=== PATIENT | male | born 1955 | race Caucasian/White ===

== ENCOUNTER 2020-02-08 16:50 | Emergency (ER) | payer BC, OTHER ==
[~2020-02-08] VITALS: Ht 167.6 cm; Wt 89.8 kg
--- NOTE | 2020-02-08 16:55 | NUR ---
IM SLURRING MY WORDS AND FEEL WEAK ON THE RT SIDE SINCE YESTERDAY 12 PM. PATIENT A/OX4, VERBALLY RESPONSIVE, CHAGNED INTO GOWN, ATTACHED TO THE PROMOTION MANAGER. IV LINE ESTABLISHED, BLOOD DRAWN AND SENT TO LAB.
--- NOTE | 2020-02-08 16:58 | NUR ---
DR. RM AT BEDSIDE FOR EVALUATION. PATIENT DOESN'T MEET THE CRITERIA FOR CODE STROKE. BLOOD GLUCOSE 375.
[2020-02-08 17:28] LABS: BASOPHILS # (AUTO) 0.1 /CMM (0.0-0.2); BASOPHILS % (AUTO) 0.5 % (0.0-2.0); EOSINOPHILS % (AUTO) 0.4 % (0.0-6.0); HEMATOCRIT 52 % (39-51); HEMOGLOBIN 17.9 g/dL (13.5-17.5); LYMPHOCYTES # (AUTO) 1.5 /CMM (0.8-4.8); LYMPHOCYTES % (AUTO) 14.5 % (20.0-44.0); MEAN CORPUSCULAR HGB CONC 34 g/dl (31.0-36.0); MEAN CORPUSCULAR VOLUME 91 fL (80-96); MONOCYTES # (AUTO) 0.6 /CMM (0.1-1.30); MONOCYTES % (AUTO) 5.7 % (2.0-12.0); NEUTROPHILS # (AUTO) 8.1 /CMM (1.8-8.9); NEUTROPHILS % (AUTO) 78.9 % (43.0-81.0); PLATELET COUNT (AUTO) 302 /CMM (150-450); RED BLOOD CELL COUNT(AUTO) 5.75 MIL/uL (4.5-6.0); WHITE BLOOD COUNT (AUTO) 10.3 K/uL (4.3-11.0)
[2020-02-08] MEDS ORDERED: IV NS 0.9% 1,000 ML BAG IV ONE (17:30)
[2020-02-08 17:41] LABS: CALCIUM, SERUM 9.1 mg/dL (8.5-10.1); CREATININE 0.9 mg/dL (0.6-1.3); POTASSIUM 3.9 mmol/L (3.5-5.1)
[2020-02-08] MEDS ORDERED: IV NS 0.9% 250 ML IV ONE (17:53)
[2020-02-08] MEDS ORDERED: CT SWABBABLE VALVE TRANS SET 1 EA INFUS.SET MC ONE (17:53)
[2020-02-08] MEDS ORDERED: IOHEXOL-350 100 ML VIAL IV ONE (17:53)
--- NOTE | 2020-02-08 19:10 | NUR ---
PATIENT AMBULATORY WITH STEADY GAIT. A/OX4, BREATHING EVEN AND UNLABORED, NO SOB NOTED. IV removed. Catheter intact and site benign. Pressure and 4x4 applied to site. No bleeding noted.Patient discharged to home in stable condition. Written and verbal after care instructions given. Patient verbalizes understanding of instruction.
[2020-02-08 19:11] VITALS: BP 133/89
== END 2020-02-08 19:11 | disposition home or self-care (01) ==
LOC: ER 16:57
DX: E11.65 Type 2 diabetes mellitus with hyperglycemia (principal); R51 Headache
CPT/HCPCS: 36415; 70496; 70498; 71045; 80048; 82962; 85025; 85730; 93005; 96360; 99285; J7030; J7050; Q9967

== ENCOUNTER 2020-02-11 12:57 | Inpatient (IN) | payer BC ==
[~2020-02-11] VITALS: Ht 168.9 cm; Wt 85.7 kg
--- NOTE | 2020-02-11 13:08 | NUR ---
"Numbness on whole Right side i was seen here last friday sent home, but now numb on whole Right side and fell down twice", to er bed 1, hooked to behavioral analyst, changed to hosp gown, warm blanket provided , patient ao x 4, breathing even and unlabored. breastfeeding educator degrasse at bedside
[2020-02-11 13:29] LABS: BASOPHILS # (AUTO) 0.3 /CMM (0.0-0.2); BASOPHILS % (AUTO) 2.8 % (0.0-2.0); EOSINOPHILS % (AUTO) 0.3 % (0.0-6.0); HEMATOCRIT 54 % (39-51); HEMOGLOBIN 18.2 g/dL (13.5-17.5); LYMPHOCYTES # (AUTO) 0.6 /CMM (0.8-4.8); LYMPHOCYTES % (AUTO) 5.5 % (20.0-44.0); MEAN CORPUSCULAR HGB CONC 34 g/dl (31.0-36.0); MEAN CORPUSCULAR VOLUME 92 fL (80-96); MONOCYTES # (AUTO) 0.6 /CMM (0.1-1.30); MONOCYTES % (AUTO) 5.4 % (2.0-12.0); NEUTROPHILS # (AUTO) 9.4 /CMM (1.8-8.9); PLATELET COUNT (AUTO) 302 /CMM (150-450); RED BLOOD CELL COUNT(AUTO) 5.84 MIL/uL (4.5-6.0); WHITE BLOOD COUNT (AUTO) 10.9 K/uL (4.3-11.0)
[2020-02-11] MEDS ORDERED: IV NS 0.9% 1,000 ML BAG IV ONE (13:30)
--- NOTE | 2020-02-11 13:33 | NUR ---
plant technical specialist at bedside
[2020-02-11 13:36] LABS: CALCIUM, SERUM 9.4 mg/dL (8.5-10.1); CARBON DIOXIDE 20 mmol/L (21-32); CHLORIDE 99 mmol/L (98-107); CREATININE 0.9 mg/dL (0.6-1.3); GLUCOSE 280 mg/dL (74-106); POTASSIUM 4.2 mmol/L (3.5-5.1); SODIUM SERUM 137 mmol/L (136-145); UREA NITROGEN, BLOOD 15 mg/dL (7-18)
[2020-02-11 13:42] LABS: ALANINE AMINOTRANSFERASE 38 U/L (12-78); ALBUMIN 4.3 g/dL (3.4-5.0); ALKALINE PHOSPHATASE 91 U/L (46-116); ASPARTATE AMINOTRANSFERASE 20 U/L (15-37); BILIRUBIN,DIRECT 0.1 mg/dL (0.0-0.2); BILIRUBIN,TOTAL 1.1 mg/dL (0.2-1.0); TOTAL PROTEIN, SERUM 7.9 g/dL (6.4-8.2)
[2020-02-11 14:51] LABS: EOSINOPHILS % (MANUAL) 1 % (0-4); LYMPHOCYTES % (MANUAL) 11 % (16-48); MONOCYTES % (MANUAL) 11 % (0-11.0); NEUTROPHILS % (MANUAL) 77 (42-76)
--- NOTE | 2020-02-11 15:07 | NUR ---
CALLED [facility], PAGED ONESIMO SCHWARZ
--- NOTE | 2020-02-11 15:10 | NUR ---
CALLED NURSING SUP FOR TELE BED
[2020-02-11] MEDS ORDERED: COLC0.6C3 PO (15:14)
[2020-02-11] MEDS ORDERED: ATOR10TA PO (15:14)
[2020-02-11] MEDS ORDERED: METF-440 PO (15:14)
[2020-02-11] MEDS ORDERED: IBUP-23 PO (15:14)
--- NOTE | 2020-02-11 15:43 | NUR ---
CALL BACK FROM YARELIS,PSYCHIATRIC SECURITY NURSE, REPORT GIVEN, APPROVED FOR OBS LEVEL ADMISSION FOR CVA TO PANEL ,TRACKING NUMBER [id number],FACESHEET AND CLINICALS TO BE FAXED TO [phone]
--- NOTE | 2020-02-11 15:54 | NUR ---
report given to [facility]aculate RN of tele unit
[2020-02-11] MEDS ORDERED: TEMAZEPAM 15 MG CAPSULE PO PRN (16:00)
[2020-02-11] MEDS ORDERED: ASPIRIN 325 MG TABLET PO ONE (16:00)
[2020-02-11] MEDS ORDERED: DEXTROSE 50%-WATER 50 ML DISP.SYRIN IV PRN (16:00)
--- NOTE | 2020-02-11 16:18 | NUR ---
patient transferred via gurney to TELE unit with tech
[2020-02-11 16:25] VITALS: BP 151/89
[2020-02-11] MEDS ORDERED: BLOOD SUGAR DIAGNOSTIC 1 EACH STRIP IN SCH ×2 (17:30→18:00)
--- NOTE | 2020-02-11 17:43 | NUR ---
ETHICS MANAGER ADMITTING NOTES PT ADMITTED TO UNIT VIA GURNEY AT 1620 ACCOMPANIED BY ER NURSE STEVIE HEART. PT IS A/O X4. ABLE TO MAKE NEEDS KNOWN WITH C/O RIGHT SIDED WEAKNESS. ORIENTED TO ROOM AND STAFF. PT WITH DIAGNOSIS OF CVA. NIHSS DONE AND NOTED WITH RIGHT SIDED WEAKNESS. NOTED WITH DRIFT ON RIGHT ARM AND RIGHT LEG. ABLE TO SWALLOW W/O PROBLEM, SPEECH IS CLEAR, UNSTEADY WHEN AMBULATING. V/S TAKEN AND RECORDED. PHOTOS OF SKIN ISSUES TAKEN AND FILED IN CHART. PT NOTED WITH IV ACCESS ON LAC G#18 INTACT, PATENT AND FLUSHES WELL. PT PLACED ON TELEMONITORING AND SHOWS SINUS RHYTHM WITH HR ON THE 80'S, NO C/O CARDIAC DISTRESS VOICED. LUNGS CLEAR BILATERALLY ON AUSCULTATION. ABDOMEN SOFT, NON-TENDER AND NON-DISTENDED WITH + BOWEL SOUNDS ON FOUR QUADRANTS. SAFETY MEASURES INITIATED. BED PLACED ON LOWEST LOCKED POSITION WITH SIDE-RAILS UP X2. CALL LIGHT WITHIN EASY REACH OF PT. ADVISED PT TO CALL FOR STAFF OR USE HIS CALL LIGHT WHEN OOB. WILL CONTINUE TO MONITOR PT ACCORDINGLY./
[2020-02-11] MEDS: BLOOD SUGAR DIAGNOSTIC 1 EACH STRIP IN SCH ×2 (18:07→21:56)
[2020-02-11] MEDS: INSULIN REGULAR, HUMAN 100 UNIT/ML 3 ML VIAL SQ PRN ×2 (18:07→21:56)
--- NOTE | 2020-02-11 18:40 | NUR ---
CORPORATE LOGISTICS MANAGER CLOSING NOTES PT IN BED AWAKE AND RESTING AT SEMI-BASS'S POSITION AT THIS TIME. A/O X4. ABLE TO MAKE NEEDS KNOWN. ON TELE-MONITORING WITH CURRENT READING OF SR WITH HR ON THE 90'S, NO C/O CARDIAC DISTRESS SINCE ADMISSION THIS AFTERNOON. IV ACCESS ON LAC G #18 INTACT, PATENT AND FLUSHES WELL. SAFETY MEASURES IN PLACE: BED ON LOWEST LOCKED POSITION WITH SIDE-RAILS UP X2. CALL LIGHT WITHIN EASY REACH OF PT. ADVISED PT TO CALL FOR STAFF OR USE HIS CALL LIGHT WHEN OOB. ALL NEEDS AND CARE ATTENDED WELL. WILL ENDORSE TO QUALITY SYSTEMS SPECIALIST NURSE FOR JOSH.
[2020-02-11 20:00] VITALS: BP 128/88
--- NOTE | 2020-02-11 20:10 | NUR ---
LAUNCH CHECK OUT: RECEIVED REPORT FROM LELE RN AT 1915. MET WITH PT IN THE ROOM, PT IS PLEASANT A/O 3 ON RA RESPIRATIONS EVEN AND UNLABORED. PT DENIES ANY CHEST PAIN, SOB, NO COUGH OR COLDS, AFEBRILE, DENIES ANY HEAD ACHE OR DIZZINESS. PT ABLE TO COMMUNICATE WELL, ABLE TO MAKE HIS NEEDS KNOWN, HYPERVERBAL. NIHSS PERFORMED SCORE OBTAINED IS 3. NOTED RIGHT ARM AND RIGHT LEG WEAKNESS. PT PASSED NURSING SWALLOW SCREEN. AWARE. PT ON CCHO DIET, HAD DINNER AT 1800. ON TELE SINUS RHYTHM HR 93. IV ACCESS PATENT AND FLUSHING WELL, ON HL. SAFETY PRECAUTIONS FOR FALL INITIATED, CALL LIGHT AND URINAL WITHIN PT'S REACH. WILL CONTINUE MONITORING PT.
[2020-02-11 20:20] VITALS: BP 128/88
[2020-02-11] MEDS: SIMVASTATIN 20 MG TABLET PO SCH (21:56)
--- NOTE | 2020-02-11 21:57 | NUR ---
blood glucose 212: accu check performed result obtained 212, 4units of insulin given per sliding scale, made aware per protocol, awaiting for call back
--- NOTE | 2020-02-11 22:19 | NUR ---
rn notes: received call from hospitalist inspection clerk, per md its okay no new orders received.
[2020-02-12] VITALS: BP 139/89
[2020-02-12 00:33] LABS: BILIRUBIN,URINE SMALL (NEGATIVE); BLOOD, URINE NEGATIVE Ery/uL (NEGATIVE); COLOR,URINE YELLOW (YELLOW); KETONES,URINE >=80 (NEGATIVE); LEUKOCYTE ESTERASE ,URINE NEGATIVE (NEGATIVE); NITRITE, URINE NEGATIVE (NEGATIVE); PH,URINE 5.5 (5.0-8.0); PROTEIN,URINE 30 mg/dl (NEGATIVE); UGLUCOSE 500 MG/DL mg/dL (NEGATIVE); UROBILINOGEN,URINE 0.2 EU/dL (0.2)
[2020-02-12 00:39] LABS: APPEARANCE,URINE CLOUDY (CLEAR)
[2020-02-12 01:13] LABS: BACTERIA,URINE None seen /HPF (None Seen); RBC,URINE 0-2 /HPF (0-2); SQUAMOUS EPITHELIAL CELL,UR Few /HPF (None Seen); URINE AMORPHOUS URATE Many /HPF (None Seen); WBC,URINE 0-2 /HPF (0-3)
[2020-02-12 01:14] LABS: CALCIUM OXALATE CRYSTALS,UR Few /HPF (None Seen)
[2020-02-12] MEDS: BLOOD SUGAR DIAGNOSTIC 1 EACH STRIP IN SCH ×4 (06:41→22:00)
[2020-02-12] MEDS: INSULIN REGULAR, HUMAN 100 UNIT/ML 3 ML VIAL SQ PRN ×4 (06:43→22:03)
--- NOTE | 2020-02-12 06:43 | NUR ---
accu check 211: blood glucose check performed and result is 211, 4units of insulin given per sliding scale. md made aware of blood glucose above 150 per order, notified equipment operation instructor hospitalist, no new orders received. will continue monitoring pt.
--- NOTE | 2020-02-12 07:02 | NUR ---
END OF SHIFT REPORT: PT REMAINS ON NORMAL SINUS RHYTHM HR 73. DENIES ANY CHEST PAIN OR DISCOMFORT THROUGHOUT THE SHIFT. NIHSS SCORE REMAINS ON 3. NO FURTHER WEAKNESS OR DEFICIT NOTED. REMAINS COMMUNICATIVE. URINAL WITHIN REACH. IV ACCESS REMAINS PATENT AND FLUSHING WELL, ON HL, NO S/S OF IV INFILTRATION NOTED. VS REMAINS STABLE, NEEDS ATTENDED. SAFETY PRECAUTIONS FOR FALL REMAINS ENGAGED, CALL LIGHT IN REACH, WILL ENDORSE TO DAY RN FOR CONTINUITY OF CARE.
[2020-02-12 07:10] LABS: BASOPHILS # (AUTO) 0.1 /CMM (0.0-0.2); BASOPHILS % (AUTO) 0.6 % (0.0-2.0); EOSINOPHILS % (AUTO) 1.7 % (0.0-6.0); HEMATOCRIT 48 % (39-51); HEMOGLOBIN 16.6 g/dL (13.5-17.5); LYMPHOCYTES # (AUTO) 2.1 /CMM (0.8-4.8); LYMPHOCYTES % (AUTO) 22.9 % (20.0-44.0); MEAN CORPUSCULAR HGB CONC 35 g/dl (31.0-36.0); MEAN CORPUSCULAR VOLUME 91 fL (80-96); MONOCYTES # (AUTO) 0.8 /CMM (0.1-1.30); MONOCYTES % (AUTO) 9.1 % (2.0-12.0); NEUTROPHILS # (AUTO) 6.1 /CMM (1.8-8.9); NEUTROPHILS % (AUTO) 65.7 % (43.0-81.0); PLATELET COUNT (AUTO) 254 /CMM (150-450); RED BLOOD CELL COUNT(AUTO) 5.23 MIL/uL (4.5-6.0); WHITE BLOOD COUNT (AUTO) 9.2 K/uL (4.3-11.0)
[2020-02-12 07:17] LABS: CALCIUM, SERUM 8.7 mg/dL (8.5-10.1); CREATININE 0.6 mg/dL (0.6-1.3); POTASSIUM 3.6 mmol/L (3.5-5.1)
--- NOTE | 2020-02-12 07:30 | NUR ---
MEDICINAL PLANT PICKER OPENING NOTES RECEIVED PT IN BED, AWAKE, A/O X3. PT TOLERATING RA, WITH NO ACUTE RESPIRATORY DISTRESS NOTED. PT DENIES ANY PAIN OR DISCOMFORT AT THIS TIME. PT DENIES ANY QUESTIONS AT THIS TIME BUT CONCERNED ABOUT GOING HOME THAT HE'LL BE ALONE AND NO ONE TO HELP HER, TO NOTIFY MD/HOSPITALIST. PT ON TELEMONITORING SR HR92. PIV TO LFA G18, FLUSHED WITH NS, INTACT AND OPERATIONAL. PT KEPT COMFORTABLE. CALL LIGHT KEPT WITHIN REACH. PT'S BED IN LOWEST, LOCKED POSITION WITH SRX3. WILL CONTINUE PLAN OF CARE.
[2020-02-12 08:17] VITALS: BP 118/59
[2020-02-12] MEDS: PANTOPRAZOLE 40 MG TABLET.DR PO SCH (08:42)
[2020-02-12] MEDS: METFORMIN 500 MG TABLET PO SCH ×2 (08:43→16:13)
[2020-02-12] MEDS: ASPIRIN EC 325 MG TABLET.DR PO SCH (08:43)
--- NOTE | 2020-02-12 09:15 | NUR ---
PACKER DRIED BEEF NOTES SEEN AND EVALUATED BY HOSPITALIST/NN, NO NEW ORDERS NOTED. WILL CONTINUE PLAN OF CARE.
[2020-02-12 16:00] VITALS: BP 136/97
--- NOTE | 2020-02-12 18:31 | NUR ---
BUSINESS OBJECTS REPORT DEVELOPER CLOSING NOTES PT REMAINS IN BED. PT A/O X3, AWAKE, PT WITH RIGHT SIDED WEAKNESS. PT TOLERATING RA, WITH NO ACUTE RESPIRATORY DISTRESS NOTED. PT ON TELEMONITORING SR HR 87. PIV TO LFA G18, FLUSHED WITH NS, INTACT AND OPERATIONAL. PT KEPT COMFORTABLE. ALL NEEDS AND CARE ATTENDED AND PROVIDED. CALL LIGHT KEPT WITHIN REACH. PT'S BED IN LOWEST, LOCKED POSITION WITH SRX3. WILL ENDORSE TO INCOMING NIGHT NURSE FOR JOSH.
--- NOTE | 2020-02-12 19:40 | NUR ---
SWAHILI TEACHER: RECEIVED REPORT FROM LELE TEIXEIRA AT 1925. A/O x3, DENIES ANY CHEST PAIN, ON RA RESPIRATIONS EVEN AND UNLABORED, HYPERVERBAL. NIHSS PERFORMED SCORE OBTAINED IS 1. NOTED RIGHT ARM WEAKNESS. SEEN BY PHYSICAL THERAPY TODAY. ON TELE SINUS RHYTHM HR 93. IV ACCESS PATENT AND FLUSHING WELL, ON HL. SAFETY PRECAUTIONS FOR FALL INITIATED, CALL LIGHT AND URINAL WITHIN PT'S REACH. WILL CONTINUE MONITORING PT.
[2020-02-12 20:00] VITALS: BP 129/91
[2020-02-12] MEDS: SIMVASTATIN 20 MG TABLET PO SCH (22:00)
[2020-02-12] MEDS: INSULIN GLARGINE, 100 UNIT/ML CARTRIDGE SQ SCH (22:03)
--- NOTE | 2020-02-12 22:03 | NUR ---
BLOOD GLUCOSE 203: FINGERSTICK GLUCOSE CHECK PERFORMED AND RESULT OBTAINED IS 203, 4UNITS OF REGULAR INSULIN GIVEN PER SLIDING SCALE, LANTUS 20 UNITS ADMINISTERED SCHEDULED. MD MADE AWARE PER PROTOCOL OF BLOOD GLUCOSE RESULT, AWAITING FOR RESPONSE.
--- NOTE | 2020-02-12 22:15 | NUR ---
RN NOTES: SPOKED WITH LIGHT COIL WINDER HOSPITALIST, NOTIFIED OF BLOOD GLUCOSE RESULT 203, GIVEN 4 UNITS OF INSULIN AND RECEIVED 20UNITS OF LANTUS. NO NEW ORDERS RECEIVED FROM
[2020-02-13] VITALS (7 sets, daily range): BP systolic 111–133; BP diastolic 66–88
--- NOTE | 2020-02-13 00:30 | NUR ---
RN NOTES: HOSPITALIST AUDIT CONTROL CLERK CURRENTLY IN THE UNIT, INFORMED NETTIE MICHAEL ABOUT PT'S BLOOD GLUCOSE LEVEL, PER MD NO NEED TO NOTIFY HER WHEN BLOOD GLUCOSE ABOVE 150, STATED IT WAS AN OLD ORDER, SINCE PT ALREADY ON LANTUS, METFORMIN AND REGULAR INSULIN.
--- NOTE | 2020-02-13 01:25 | NUR ---
TRUCK PACKER OF CARE NOTES: PT SLEEPING, APPEARS CALM AND COMFORTABLE, RESPIRATIONS EVEN AND UNLABORED. ON TELE SINUS RHYTHM HR 70. SAFETY PRECAUTIONS FOR FALL REMAINS ENGAGED, CALL LIGHT IN REACH, ENDORSED TO [facility] RN FOR CONTINUITY OF CARE.
--- NOTE | 2020-02-13 01:27 | NUR ---
PHYSICIAN EXECUTIVE NOTES RECEIVED REPORT TO CONTINUE PLAN OF CARE. PATIENT SLEEPING IN BED. ON ROOM AIR. NO DISTRESS NOTED. TELE MONITOR READING SINUS RHYTHM, HEART RATE 62. WILL CONTINUE TO MONITOR.
[2020-02-13] MEDS: BLOOD SUGAR DIAGNOSTIC 1 EACH STRIP IN SCH ×4 (06:36→21:29)
[2020-02-13] MEDS: PANTOPRAZOLE 40 MG TABLET.DR PO SCH (06:41)
[2020-02-13] MEDS: INSULIN REGULAR, HUMAN 100 UNIT/ML 3 ML VIAL SQ PRN ×4 (06:43→21:31)
--- NOTE | 2020-02-13 06:49 | NUR ---
PRE ASSEMBLY WIRER CLOSING NOTES PATIENT AWAKE IN BED. A/OX3. NO C/O OF SOB OR PAIN AT THIS TIME. TELE MONITOR READING SINUS RHYTHM, HEART RATE 87. IV ON LEFT FA, SIZE 18, INTACT & PATENT, HEP LOCKED. SAFETY MEASURES IN PLACE. BED LOCKED, ALARM ON, SIDE RAILS X2, CALL LIGHT WITHIN REACH. WILL ENDORSE TO DAY SHIFT NURSE PLAN OF CARE.
[2020-02-13 07:13] LABS: CALCIUM, SERUM 9.1 mg/dL (8.5-10.1); CREATININE 0.8 mg/dL (0.6-1.3); POTASSIUM 3.6 mmol/L (3.5-5.1)
--- NOTE | 2020-02-13 07:44 | NUR ---
AREA REPRESENTATIVE OPENING NOTES RECEIVED PT IN BED, AWAKE, A/O X3. PT TOLERATING RA, WITH NO ACUTE RESPIRATORY DISTRESS NOTED. PT DENIES ANY PAIN OR DISCOMFORT AT THIS TIME. PT DENIES ANY QUESTIONS OR CONCERNS AT THIS TIME. PT ON TELEMONITORING SR HR88. PIV TO LFA G18, FLUSHED WITH NS, INTACT AND OPERATIONAL. PT KEPT COMFORTABLE. CALL LIGHT KEPT WITHIN REACH. PT'S BED IN LOWEST, LOCKED POSITION WITH SRX3. WILL CONTINUE PLAN OF CARE.
[2020-02-13] MEDS: ASPIRIN EC 325 MG TABLET.DR PO SCH (09:01)
[2020-02-13] MEDS: METFORMIN 500 MG TABLET PO SCH ×2 (09:01→16:11)
[2020-02-13] MEDS: INSULIN ASPART/LISPRO 100 UNIT/ML CARTRIDGE SQ SCH ×2 (09:03→17:53)
[2020-02-13] MEDS: LOSARTAN POTASSIUM 50 MG TABLET PO SCH (09:26)
--- NOTE | 2020-02-13 10:30 | NUR ---
MS RN NOTES SEEN ANS EVALUATED BY HOSPITALIST/NN. REGARDING NEURO CONSULT, PER NN HE'LL NOTIFY KATHERINE IF DR PARIKH NOT AVAILABLE AND POSSIBLE /FRIDAY. PT MADE AWARE WELL. WILL CONTINUE TO MONITOR.
--- NOTE | 2020-02-13 10:40 | NUR ---
MS RN NOTES HOSPITALIST/NN ADDED INSULIN LISPRO 10 UNITS BID PC. CARRIED OUT ORDER. WILL CONTINUE TO MONITOR BLOOD SUGAR OF PT.
--- NOTE | 2020-02-13 18:46 | NUR ---
MS RN CLOSING NOTES PT REMAINS IN BED, AWAKE, A/O X3. PT TOLERATING RA, WITH NO ACUTE RESPIRATORY DISTRESS NOTED. PT DENIES ANY PAIN OR DISCOMFORT AT THIS TIME. PIV TO LFA G18, FLUSHED WITH NS, INTACT AND OPERATIONAL. ALL NEEDS AND CARE ATTENDED AND PROVIDED. PT KEPT COMFORTABLE. CALL LIGHT KEPT WITHIN REACH. PT'S BED IN LOWEST, LOCKED POSITION WITH SRX3. WILL ENDORSE TO INCOMING NIGHT NURSE FOR JOSH.
--- NOTE | 2020-02-13 19:30 | NUR ---
PALAEONTOLOGIST: RECEIVED REPORT FROM LELE RN AT 1925. A/O x3, DENIES ANY CHEST PAIN, ON RA RESPIRATIONS EVEN AND UNLABORED, HYPERVERBAL. NOTED RIGHT ARM WEAKNESS. NIHSS PERFORMED SCORE OBTAINED IS 1. ON TELE SINUS RHYTHM HR 93. IV ACCESS PATENT AND FLUSHING WELL, ON HL. SAFETY PRECAUTIONS FOR FALL INITIATED, CALL LIGHT AND URINAL WITHIN PT'S REACH. WILL CONTINUE MONITORING PT.
--- NOTE | 2020-02-13 21:00 | NUR ---
rn notes: performed skin assessment, same skin issue noted, scab on chest area, and abrasion on sacral area, no open wound, no redness, no pressure injuries.
[2020-02-13] MEDS: SIMVASTATIN 20 MG TABLET PO SCH (21:28)
[2020-02-13] MEDS: INSULIN GLARGINE, 100 UNIT/ML CARTRIDGE SQ SCH (21:32)
--- NOTE | 2020-02-13 21:33 | NUR ---
accu check 164: blood glucose check performed result is 164, 3units of insulin given per sliding scale. pt on ccho diet.
[2020-02-14] MEDS: BLOOD SUGAR DIAGNOSTIC 1 EACH STRIP IN SCH ×4 (06:18→21:41)
[2020-02-14] MEDS: INSULIN REGULAR, HUMAN 100 UNIT/ML 3 ML VIAL SQ PRN ×4 (06:20→21:43)
--- NOTE | 2020-02-14 06:55 | NUR ---
END OF SHIFT REPORT: NIHSS SCORE REMAINS ON 1. PT REMAINS ON NORMAL SINUS RHYTHM HR 73. DENIES ANY CHEST PAIN OR DISCOMFORT THROUGHOUT THE SHIFT. NO FURTHER WEAKNESS OR DEFICIT NOTED. REMAINS COMMUNICATIVE. URINAL WITHIN REACH. IV ACCESS REMAINS PATENT AND FLUSHING WELL, ON HL, NO S/S OF IV INFILTRATION NOTED. VS REMAINS STABLE, NEEDS ATTENDED. FOR DC PLANNING TO [facility]. SAFETY PRECAUTIONS FOR FALL REMAINS ENGAGED, CALL LIGHT IN REACH, WILL ENDORSE TO DAY RN FOR CONTINUITY OF CARE
[2020-02-14 08:00] VITALS: BP 144/79
--- NOTE | 2020-02-14 08:00 | NUR ---
m/s vest busheler: md visit seen and examined by dr. dominguez at this time. pt for d'c planning to [facility] per md. pt aware. will continue to monitor.
[2020-02-14] MEDS: LOSARTAN POTASSIUM 50 MG TABLET PO SCH (08:32)
[2020-02-14] MEDS: ASPIRIN EC 325 MG TABLET.DR PO SCH (08:32)
[2020-02-14] MEDS: METFORMIN 500 MG TABLET PO SCH ×2 (08:32→17:21)
[2020-02-14] MEDS: PANTOPRAZOLE 40 MG TABLET.DR PO SCH (08:32)
[2020-02-14] MEDS: INSULIN ASPART/LISPRO 100 UNIT/ML CARTRIDGE SQ SCH ×2 (08:34→17:57)
--- NOTE | 2020-02-14 08:34 | NUR ---
m/s producer director: notes pt refused after meals insulin when offered.
--- NOTE | 2020-02-14 09:17 | NUR ---
WOUND CARE CONSULT: PT PRESENTS INDEPENDENT WITH BED MOBILITY AND CONTINENT. PT NOTED TO HAVE SCRATCH TO SACRAL/BUTTOCKS AREA AND RAISED LESIONS TO CHEST AND MIDBACK, PRESENT ON ADMISSION. PT STATES WILL HAVE LESIONS CHECKED BY HIS PMD. WILL SEE PRN. CURRENT STEVIE SCORE IS 20.
--- NOTE | 2020-02-14 09:40 | NUR ---
m/s custom harvester: neuro consult seen and examined by dr. cassidy at this time.
--- NOTE | 2020-02-14 10:30 | NUR ---
m/s agricultural equipment test engineer: notes stroke pt satisfaction survey done verbally for pt due to unable to immigration consultant pen on his right hand. survey completed, documented and place in chart.
--- NOTE | 2020-02-14 10:50 | NUR ---
m/s product line manager: notes physical therapist at bedside for treatment.
--- NOTE | 2020-02-14 13:45 | NUR ---
m/s stereo operator: notes spoke to dr. dominguez and informed me that pt is clear for discharge per neurologist standpoint. pt can go to [facility]. leonel (rk) making arrangement. pt aware.
[2020-02-14 16:00] VITALS: BP 120/80
--- NOTE | 2020-02-14 16:00 | NUR ---
m/s dehairer: notes leonel (rk) called and informed me that [facility] was denies by pt's insurance and will work on snf placement. pt made aware.
--- NOTE | 2020-02-14 18:00 | NUR ---
m/s can filling and closing machine tender: notes informed pt that there is no bed available at snf at this time. pt for d'c planning to [facility] tomorrow per cm. needs attended. pt refused after meal insulin. no apparent distress noted. instructed to call for assistance. will continue to monitor.
--- NOTE | 2020-02-14 19:20 | NUR ---
RN OPENING NOTES RECEIVED PATIENT AWAKE IN BED. A/OX4. NO SIGNS OF DISTRESS OR DISCOMFORT. BREATHING EVEN AND UNLABORED. IV ACCESS IN LFA, PATENT AND INTACT, NO SIGNS OF REDNESS OR INFILTRATION. BED IN LOW LOCKED POSITION WITH SIDE RAILS X2. CALL LIGHT WITHIN REACH. PATIENT ADVISED TO USE CALL LIGHT FOR ASSISTANCE. WILL CONTINUE TO MONITOR.
--- NOTE | 2020-02-14 19:24 | NUR ---
m/s park naturalist: notes bedside report given to elieser (rn) for continuity of care.
[2020-02-14 20:00] VITALS: BP 112/76
[2020-02-14] MEDS: INSULIN GLARGINE, 100 UNIT/ML CARTRIDGE SQ SCH (21:42)
[2020-02-14] MEDS: SIMVASTATIN 20 MG TABLET PO SCH (21:42)
[2020-02-15] MEDS: BLOOD SUGAR DIAGNOSTIC 1 EACH STRIP IN SCH ×2 (06:39→12:18)
[2020-02-15] MEDS: INSULIN REGULAR, HUMAN 100 UNIT/ML 3 ML VIAL SQ PRN ×2 (06:39→12:31)
--- NOTE | 2020-02-15 06:57 | NUR ---
RN CLOSING NOTES PATIENT AWAKE IN BED. A/OX4. NO SIGNS OF DISTRESS OR DISCOMFORT. BREATHING EVEN AND UNLABORED. IV ACCESS IN LFA, PATENT AND INTACT, NO SIGNS OF REDNESS OR INFILTRATION. ALL NEEDS MET. NO SIGNIFICANT CHANGES THROUGH THE NIGHT. BED IN LOW LOCKED POSITION WITH SIDE RAILS X2. CALL LIGHT WITHIN REACH. PATIENT ADVISED TO USE CALL LIGHT FOR ASSISTANCE. WILL ENDORSE TO AM SHIFT FOR JOSH.
[2020-02-15 08:00] VITALS: BP 133/78
--- NOTE | 2020-02-15 08:00 | NUR ---
MS RN OPENING NOTES Received Patient awake and resting in bed. A/O x 4. VS stable with no acute distress. Breathing even and unlabored on room air with no respiratory distress. Denies pain. No signs and symptoms of pain. 18g PIV on LFA clean, intact, patent and flushing well. Safety precautions in place. Bed locked and set to lowest position with side rails x 2 up. All needs rendered at this time. Call light within reach. Will continue to monitor.
[2020-02-15] MEDS: INSULIN ASPART/LISPRO 100 UNIT/ML CARTRIDGE SQ SCH (09:01)
[2020-02-15 09:02] VITALS: BP 133/78
[2020-02-15] MEDS: LOSARTAN POTASSIUM 50 MG TABLET PO SCH (09:02)
[2020-02-15] MEDS: ASPIRIN EC 325 MG TABLET.DR PO SCH (09:02)
[2020-02-15] MEDS: PANTOPRAZOLE 40 MG TABLET.DR PO SCH (09:02)
[2020-02-15] MEDS: METFORMIN 500 MG TABLET PO SCH (09:02)
--- NOTE | 2020-02-15 14:27 | NUR ---
MS ESTIMATOR NOTES Patient discharged for [facility] at this time. Patient in stable condition. VS stable with no acute distress. Breathing even and unlabored on room air with no respiratory distress. Denies pain. Removed intact PIV from LFA. Skin assessment photos taken and placed in chart. Medication reconciliation and discharge orders reviewed and explained to Patient. Patient verbalized understanding. All belongings with Patient. Patient will follow up with PCP. Patient picked up by ambulance. Report given to Kyle TEIXEIRA.
== END 2020-02-15 15:33 | DRG 65 ==
LOC: ER 13:00 → TELE 16:29 → MED 02-13 08:44
PROVIDERS: ADMIT Nurse Practitioner Acute Care; ATTEND Family Medicine
DX: I63.9 Cerebral infarction, unspecified (principal); G81.91 Hemiplegia, unspecified affecting right dominant side; F95.2 Tourette's disorder; E11.65 Type 2 diabetes mellitus with hyperglycemia; E78.5 Hyperlipidemia, unspecified; I10 Essential (primary) hypertension; Z68.31 Body mass index [BMI] 31.0-31.9, adult; G47.33 Obstructive sleep apnea (adult) (pediatric); R40.2412 Glasgow coma scale score 13-15, at arrival to emergency department; E66.9 Obesity, unspecified; Z91.14 Patient's other noncompliance with medication regimen; R47.1 Dysarthria and anarthria; Z86.73 Personal history of transient ischemic attack (TIA), and cerebral infarction without residual deficits
CPT/HCPCS: 36415; 70450-TC; 71045-TC; 80048-TC; 80061-TC; 80076-TC; 80305; 81000-TC; 82962-TC; 84443-TC; 84484-TC; 85025-TC; 85652-TC; 85730-TC; 87081-TC; 92611-TC; 93307-TC; 93880-TC; 97110-TC; 97116-TC; 97530-TC; 97535-TC; G0378; J1815; J7030